=== PATIENT | male | born 1945 | race Caucasian/White ===

== ENCOUNTER 2016-12-10 06:59 | Inpatient (IN) | payer BC, MEDICARE ==
[2016-12-09 17:40] VITALS: BMI 25.9
[2016-12-10] VITALS (21 sets, daily range): BP systolic 99–166; BP diastolic 44–76; PULSE 58–76; RESP 18–29; Ht 170.2 cm; Wt 73.0 kg
[~2016-12-10] VITALS: Ht 170.2 cm; Wt 73.0 kg
--- NOTE | 2016-12-10 06:50 | HPN ---
Date/Time of Note Date/Time of Note DATE: 12/10/16 TIME: 06:49 Interval H&P Admission Note Pt. seen H&P reviewed: No system changes NICKIE YOUNG MD Dec 10, 2016 06:49
[~2016-12-10 06:59] MED LIST: ASCO-163 PO; CEFAZOLIN 2 GM/50 ML (PMX) 50 ML IVPB ONE; CYCL-117 PO; DEXAMETHASONE 1 MG TAB PO ONE; DOCO100C PO; ERGO500037 PO; GABAPENTIN 300 MG CAP PO ONE; GLUC1TAB59 PO; HYDR-3612 PO; IBUP800T25 PO; METO25TA7 PO; NIAC500T3 PO; OLME20TA20 PO; ORPH100T PO; PANT40TA3 PO; PERCOCET PO; PITA2TAB PO; SYN1 PO; TRANEXAMIC ACID 1,000 MG in SOD CHLORIDE 0.9% 100 ML IVPB ONE; WARF5TAB72 PO; traMADol 50 MG TAB PO ONE
[2016-12-10] MEDS ORDERED: PROPOFOL 1000 MG INJ ONE (07:00)
[2016-12-10] MEDS ORDERED: DEXAMETHASONE 4 MG/ML 1 ML INJ ONE (07:53)
[2016-12-10] MEDS ORDERED: PROPOFOL 20 ML ONE (07:53)
[2016-12-10] MEDS ORDERED: MIDAZOLAM 1 MG/ML 2 ML INJ ONE (07:53)
[2016-12-10] MEDS ORDERED: CEFAZOLIN 1 GM INJ ONE (07:53)
[2016-12-10] MEDS ORDERED: FENTAnyl 50 MCG/ML VIAL ONE (07:53)
[2016-12-10] MEDS ORDERED: GLYCOPYRROLATE 0.4 MG INJ ONE (07:53)
[2016-12-10] MEDS ORDERED: NEOSTIGMINE 3 MG/3 ML SYRINGE ONE (07:53)
[2016-12-10] MEDS ORDERED: ROCURONIUM 50 MG INJ ONE (07:53)
[2016-12-10] MEDS ORDERED: ONDANSETRON 4 MG INJ ONE (07:53)
[2016-12-10] MEDS ORDERED: ROPIVACAINE 0.5 % 30 ML VIAL ONE (07:56)
[2016-12-10] MEDS ORDERED: DEXL60CA2 PO (08:00)
[2016-12-10] MEDS ORDERED: FLUT9.9S NASAL (08:00)
[2016-12-10] MEDS ORDERED: LEVO88TA3 PO (08:01)
[2016-12-10] MEDS ORDERED: BECL8.7A5 INH (08:03)
[2016-12-10] MEDS ORDERED: WARF6TAB35 PO (08:04)
[2016-12-10] MEDS ORDERED: TIZA2TAB PO (08:04)
[2016-12-10] MEDS ORDERED: CA CHLORIDE 10% 10 ML SYRINGE ONE (08:23)
[2016-12-10] MEDS ORDERED: BUPIVACAINE 0.5%/EPI (SDV) 30 ML INJ ONE (08:23)
[2016-12-10] MEDS ORDERED: POLYMYXIN/BACITRACIN 1L IRRIG ONE (08:23)
[2016-12-10] MEDS ORDERED: THROMBIN 5000 UNIT VIAL ONE (08:23)
[2016-12-10] MEDS ORDERED: PAIN COCKTAIL - VANCOMYCIN IRR ONE ×7 (09:30)
[2016-12-10 09:33] LABS: INR 1.01; PARTIAL THROMBOPLASTIN TIME 28.1 Sec (25.0-35.0); PROTIME 13.3 Sec (12.2-14.2)
[2016-12-10] MEDS ORDERED: DIPHENHYDRAMINE 50 MG INJ IV PRN ×3 (10:00→16:00)
[2016-12-10] MEDS ORDERED: TRIMETHOBENZAMIDE 100 MG/ML VIAL IM PRN ×2 (10:00→13:00)
[2016-12-10] MEDS ORDERED: LABETALOL HCL 20MG INJ IV PRN ×2 (10:00→13:00)
[2016-12-10] MEDS ORDERED: ONDANSETRON 4 MG INJ IV PRN ×3 (10:00→16:00)
[2016-12-10] MEDS ORDERED: FENTAnyl 50 MCG/ML VIAL IV PRN ×6 (10:00→13:00)
[2016-12-10] MEDS ORDERED: EPHEDrine SULFATE 50 MG/5 ML SYG IV PRN ×2 (10:00→13:00)
[2016-12-10] MEDS ORDERED: MIDAZOLAM 1 MG/ML 2 ML INJ IV PRN ×2 (10:00→13:00)
[2016-12-10] MEDS ORDERED: HYDROmorphONE (0.2 MG/ML) 10ML SYG IV PRN ×6 (10:00→13:00)
[2016-12-10] MEDS ORDERED: hydrALAzine 20 MG INJ IV PRN ×2 (10:00→13:00)
[2016-12-10] MEDS ORDERED: MEPERIDINE 25 MG INJ IV PRN ×2 (10:00→13:00)
[2016-12-10] MEDS ORDERED: hydrALAzine 20 MG INJ ONE ×2 (10:21→10:22)
[2016-12-10] MEDS: VANCOMYCIN 1 GM INJ ONE ×2 (10:34→10:44)
[2016-12-10] MEDS: TOBRAMYCIN 1.2 GM POWDER ONE ×2 (10:36→10:44)
[2016-12-10] MEDS ORDERED: VANCOMYCIN 1 GM INJ ONE (10:39)
[2016-12-10] MEDS ORDERED: TOBRAMYCIN 1.2 GM POWDER ONE (10:39)
[2016-12-10] MEDS ORDERED: MINERAL OIL LIGHT 10 ML VIAL ONE (11:08)
--- NOTE | 2016-12-10 12:18 | OPR ---
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 POSTOPERATIVE DIAGNOSIS: Infected left reverse total shoulder. PROCEDURE PERFORMED: Left open removal of reverse total shoulder and revision to hemiarthroplasty. Slurry Plant Operator surgeon, Shakeel Acevedo MD, was asked to be present at my request as a result of the compl exity associated with this procedure, including positioning of the extremity, manipulation and prote ction of the neurovascular structures. In my opinion, the assistance offered by a surgical scrub [facility] is insufficient, and Dr. Acevedo should be compensated for his time. PROCEDURE IN DETAIL: Following administration of general endotracheal anesthesia, the patient was p laced in the beach chair position. The left upper extremity was prepped and draped in the usual jamar rile fashion. The previously made deltopectoral incision was then incised. Very severe scar tissue was encountered. The deltopectoral interval was identified and elevated. Significant scar tissue was elevated from the subdeltoid plane and the capsule of the joint was incised. A significant amou nt of serous fluid with some turbidity was noted. A culture was taken. Several areas of what appea red to be very inflamed synovium with superficially purulent material were then also sent for cultur e. The humeral shaft was then dislocated and the humeral component elevated and removed relatively atraumatically. The shaft was reamed. Attention then directed back to the glenoid. The glenoid components were removed with a small porti on of the glenoid being removed as a result of a fracture from the removal. Some incorporation had taken place there. The joint was then thoroughly irrigated. A humeral head was then fashioned using 3 grams of vancomy earl with cement, and this was then applied to the humeral shaft after multiple cement beads with hig h concentration of antibiotics were also placed prior to closure. A thorough irrigation was then un dertaken. The wound was closed in layers including a Prineo dressing being applied. The patient wa s then awakened, placed in a sling, extubated, transported to recovery room in a stable condition. Estimated blood loss for this procedure was 500 mL. Postoperative radiographs and a CBC will be obt ained prior to going to the floor. Dictated By: NICKIE ALLISON/NTS Conf#: [id number] DID#: [id number]
[2016-12-10] MEDS ORDERED: TRANEXAMIC ACID 1,000 MG in SOD CHLORIDE 0.9% 100 ML IV ONE (12:30)
[2016-12-10] MEDS ORDERED: MAGNESIUM HYDROXIDE 30ML CUP PO PRN (12:30)
[2016-12-10] MEDS ORDERED: ACETAMINOPHEN 500 MG TAB PO PRN (12:30)
[2016-12-10] MEDS ORDERED: TIZANIDINE 2 MG TAB PO PRN (12:30)
[2016-12-10] MEDS ORDERED: KETOROLAC 15 MG INJ IV PRN (12:30)
--- NOTE | 2016-12-10 12:32 | PDOCDIS ---
Discharge Instructions DIAGNOSIS Discharge Diagnosis: Infected total shoulder CONDITION Patient Condition: Good HOME CARE INSTRUCTIONS: Diet Instructions: Regular ACTIVITY: Activity Restrictions: Slowly Increase Activity Keep Limb Elevated Bathing Restrictions: Shower FOLLOW UP/APPOINTMENTS Appointments Two weeks OTHER ORDERS: Other Orders: Doxycycline BID for four weeks SCHOOL/WORK RELEASE May return to School/Work with: With Restrictions School/Work Release Comment: Five pound table top usage for six weeks NICKIE YOUNG MD Dec 10, 2016 12:32
--- NOTE | 2016-12-10 13:13 | RADRPT ---
PROCEDURE: CR left shoulder CLINICAL INDICATION: Shoulder pain /postop TECHNIQUE: AP view performed COMPARISON: 08/01/2015 FINDINGS: There has been removal of the left shoulder reverse arthroplasty and replacement with an antibiotic infused humeral head and to intramedullary rods (antibiotic beads surrounding the intramedullary malika s) There is otherwise normal mineralization, architecture and alignment.No fracture or osseous lesion i s identified. The soft tissues are unremarkable. IMPRESSION: Removal of left shoulder reverse arthroplasty and replacement with an antibiotic infused humeral hea d and intramedullary rods. RPTAT: HGDB .Rashaad Mi MD, Date Time Electronically viewed and signed by .Rashaad Mi MD, on 12/10/2016 13:12 .B/
[2016-12-10 15:13] LABS: ADD SCAN DIFF NO
[2016-12-10 15:15] LABS: ABNORMAL IP MESSAGE 1; HEMATOCRIT 38.6 % (42.0-52.0); HEMOGLOBIN 12.7 g/dl (14.0-18.0); MEAN CORPUSCULAR HEMOGLOBIN 30.8 pg (29.0-33.0); MEAN CORPUSCULAR HGB CONC 32.9 g/dl (32.0-37.0); MEAN CORPUSCULAR VOLUME 93.7 fl (82.0-101.0); MEAN PLATELET VOLUME 10.2 fl (7.4-10.4); PLATELET COUNT 194 10^3/UL (140-415); RED BLOOD COUNT 4.12 10^6/ul (4.70-6.10); RED CELL DISTRIBUTION WIDTH 13.3 % (11.5-14.5); WHITE BLOOD COUNT 12.6 10^3/ul (4.8-10.8)
[2016-12-10] MEDS ORDERED: morphine 2 MG INJ IV PRN (16:00)
[2016-12-10] MEDS ORDERED: morphine 4 MG/ML VIAL IV PRN (16:00)
[2016-12-10] MEDS ORDERED: OXYCODONE/ACETAMINOPHEN (5/325) TAB PO PRN (16:00)
[2016-12-10] MEDS ORDERED: ZOLPIDEM 5 MG TAB PO PRN (16:00)
[2016-12-10 16:37] LABS: LYMPHOCYTES # 0.3 10^3/ul (0.8-2.9); MONOCYTE # 0.1 10^3/ul (0.3-0.9); NEUTROPHIL # 11.7 10^3/ul (1.6-7.5)
[2016-12-10] MEDS ORDERED: WARFARIN 3 MG TAB PO SCH (17:00)
[2016-12-10] MEDS: DEXAMETHASONE 2 MG TAB PO SCH (17:51)
[2016-12-10] MEDS: MOMETASONE 0.24 GM INHALER INH SCH (20:39)
[2016-12-10] MEDS: SENNA/DOCUSATE NA (8.6MG/50MG) TAB PO SCH (20:40)
[2016-12-10] MEDS ORDERED: GABAPENTIN 300 MG CAP PO SCH (21:00)
[2016-12-10] MEDS: VANCOMYCIN 500MG/NS (PMX) 100 ML IVPB SCH (22:02)
[2016-12-10] MEDS: OXYCODONE/ACETAMINOPHEN (5/325) TAB PO PRN (22:06)
[2016-12-11] MEDS: DEXAMETHASONE 2 MG TAB PO SCH ×2 (00:40→06:27)
[2016-12-11] MEDS ORDERED: PANTOPRAZOLE (EC) 40 MG TAB PO SCH (06:00)
--- NOTE | 2016-12-11 06:40 | PN ---
Date/Time of Note Date/Time of Note DATE: 12/11/16 TIME: 06:39 24 hour Interval Summary Patient is awake and alert with no pain. Physical examination: His wound is clean and dry. He is neurologically intact. There are no signs of DVT. Impression: Status post conversion of reverse total shoulder with infection now to hemiarthroplasty. Plan: He will be discharged this morning. He will continue with a course of doxycycline twice daily for the next month. He will follow-up in the office in 2 weeks. Physical Exam Vital Signs Date Time Temp Pulse Resp B/P Pulse Ox O2 Delivery O2 Flow Rate FiO2 12/10/16 20:57 97.4 72 20 109/58 96 12/10/16 16:25 Room Air 12/10/16 12:26 2.0 Intake and Output 12/10/16 12/10/16 12/11/16 15:00 23:00 07:00 Intake Total 2510 ml 500 ml 100 ml Output Total 500 ml 600 ml Balance 2010 ml -100 ml 100 ml VTE Prophylaxis VTE Prophylaxis Intervention: anti-embolic stocking Lines/Catheters IV Catheter Type: Saline Lock Central line still needed: No Christianson in Place: No Results Result Diagram: 12/10/16 1510 Results 24hrs Laboratory Tests Test 12/10/16 09:15 12/10/16 15:10 Prothrombin Time 13.3 Prothrombin Time Ratio 1.0 INR International Normalized Ratio 1.01 Activated Partial Thromboplast Time 28.1 White Blood Count 12.6 H Red Blood Count 4.12 L Hemoglobin 12.7 L Hematocrit 38.6 L Mean Corpuscular Volume 93.7 Mean Corpuscular Hemoglobin 30.8 Mean Corpuscular Hemoglobin Concent 32.9 Red Cell Distribution Width 13.3 Platelet Count 194 Mean Platelet Volume 10.2 Neutrophils % 93.0 H Lymphocytes % 2.0 L Monocytes % 1.0 Eosinophils % 0.0 Basophils % 0.0 Nucleated Red Blood Cells % 0.0 Neutrophils # 11.7 H Lymphocytes # 0.3 L Monocytes # 0.1 L Eosinophils # 0.0 Basophils # 0.0 Nucleated Red Blood Cells # 0.0 Differential Comment MANUAL DIFF Medications Medications Home Meds Reported Medications Warfarin Sodium* (Warfarin Sodium*) 6 Mg Tablet, 6 MG PO DAILY, TAB 12/10/16 Tizanidine Hcl* (Zanaflex*) 2 Mg Tablet, 2 MG PO Q6H Y for SPASTICITY, TAB 12/10/16 Beclomethasone Dip* (Qvar 80*) 7.3 Gm Inha, 2 PUFF INH BID, #1 INHALER 12/10/16 Levothyroxine Sodium* (Levothyroxine Sodium*) 88 Mcg Tablet, 88 MCG PO BEFORE BREAKFAST, #30 TAB 12/10/16 Fluticasone Propionate (Flonase Allergy Relief) 9.9 Ml [place].susp, 2 SPRAY NASAL DAILY, #1 BOTTLE TO EACH NOSTRIL 12/10/16 Dexlansoprazole (Dexilant) 60 Mg Cap.mp, 60 MG PO DAILY, #30 CAP 12/10/16 Metoprolol Succinate* (Toprol XL*) 25 Mg Tab.sr.24h, 25 MG PO DAILY, TAB 08/01/15 Olmesartan Medoxomil (Benicar) 20 Mg Tablet, 20 MG PO DAILY 01/04/14 Discontinued Reported Medications Warfarin Sodium* (Coumadin*) 5 Mg Tablet, 5 MG PO DAILY, TAB 08/01/15 Niacin* (Slo-Niacin*) 500 Mg Tablet.sa, 500 MG PO DAILY, TAB.SA 08/01/15 Orphenadrine Citrate (Norflex) 100 Mg Tablet.sa, 100 MG PO DAILY Y for BREAKTHROUGH PAIN 01/04/14 Oxycodone Hcl/Acetaminophen (Percocet) 1 Tab Tab, 1 TAB PO Y for MODERATE PAIN LEVEL 4-6, TAB 01/04/14 Cyclobenzaprine Hcl (Flexeril) 10 Mg Tablet, 10 MG PO DAILY Y for INFLAMATION 01/04/14 Ibuprofen* (Ibuprofen*) 800 Mg Tablet, 800 MG PO BID Y for MILD PAIN LEVEL 1-3 01/04/14 Hydrocodone Bit-Acetaminophen* ([place]*) 1 Tab Tab, 1 TAB PO Q4NARC Y for MODERATE PAIN LEVEL 4-6, TAB 01/04/14 Ergocalciferol (Vitamin D2) (VITAMIN D2) 50,000 Unit Capsule, 30186 UNIT PO WEEKLY 01/04/14 Ascorbic Acid (Vitamin C With Eryn Hips) 1,000 Mg Tablet, 1000 MG PO DAILY 01/04/14 Docosahexanoic Acid (DHA) 100 Mg Capsule, 100 MG PO DAILY 01/04/14 Glucosa Angulo 2KCL/Chondroitin Angulo (GLUCOSAMINE CHONDROITIN CAPLET) 1 Each Tablet, 1 EACH PO BID 01/04/14 Pitavastatin Calcium (Livalo) 2 Mg Tablet, 2 MG PO HS 01/04/14 Pantoprazole* (Protonix*) 40 Mg Tablet.dr, 40 MG PO DAILY 01/04/14 Levothyroxine Sodium* (Synthroid*) 100 Mcg Tablet, 100 MCG PO DAILY 01/04/14 NICKIE YOUNG MD Dec 11, 2016 06:40
--- NOTE | 2016-12-11 06:42 | DS ---
Date/Time of Note Date/Time of Note DATE: 12/11/16 TIME: 06:40 Discharge Summary Admission/Discharge Info Admit Date/Time Dec 10, 2016 at 06:59 Discharge Date/Time December 11, 2016 Final Diagnosis Infection of the left reverse total shoulder replacement Patient Condition: Good Procedures Removal of reverse total shoulder replacement with revision to hemiarthroplasty cemented implant Hx of Present Illness Patient had chronic swelling and pain in the left shoulder. Evaluation revealed a possible infection. Hospital Course Patient had removal of a reverse total shoulder replacement. Following overnight observation the patient did well and is to be discharged home on oral antibiotics. He also has a cement spacer that has several grams of antibiotics. Home Meds Reported Medications Warfarin Sodium* (Warfarin Sodium*) 6 Mg Tablet, 6 MG PO DAILY, TAB 12/10/16 Tizanidine Hcl* (Zanaflex*) 2 Mg Tablet, 2 MG PO Q6H Y for SPASTICITY, TAB 12/10/16 Beclomethasone Dip* (Qvar 80*) 7.3 Gm Inha, 2 PUFF INH BID, #1 INHALER 12/10/16 Levothyroxine Sodium* (Levothyroxine Sodium*) 88 Mcg Tablet, 88 MCG PO BEFORE BREAKFAST, #30 TAB 12/10/16 Fluticasone Propionate (Flonase Allergy Relief) 9.9 Ml [place].susp, 2 SPRAY NASAL DAILY, #1 BOTTLE TO EACH NOSTRIL 12/10/16 Dexlansoprazole (Dexilant) 60 Mg Cap.mp, 60 MG PO DAILY, #30 CAP 12/10/16 Metoprolol Succinate* (Toprol XL*) 25 Mg Tab.sr.24h, 25 MG PO DAILY, TAB 08/01/15 Olmesartan Medoxomil (Benicar) 20 Mg Tablet, 20 MG PO DAILY 01/04/14 Discontinued Reported Medications Warfarin Sodium* (Coumadin*) 5 Mg Tablet, 5 MG PO DAILY, TAB 08/01/15 Niacin* (Slo-Niacin*) 500 Mg Tablet.sa, 500 MG PO DAILY, TAB.SA 08/01/15 Orphenadrine Citrate (Norflex) 100 Mg Tablet.sa, 100 MG PO DAILY Y for BREAKTHROUGH PAIN 01/04/14 Oxycodone Hcl/Acetaminophen (Percocet) 1 Tab Tab, 1 TAB PO Y for MODERATE PAIN LEVEL 4-6, TAB 01/04/14 Cyclobenzaprine Hcl (Flexeril) 10 Mg Tablet, 10 MG PO DAILY Y for INFLAMATION 01/04/14 Ibuprofen* (Ibuprofen*) 800 Mg Tablet, 800 MG PO BID Y for MILD PAIN LEVEL 1-3 01/04/14 Hydrocodone Bit-Acetaminophen* ([place]*) 1 Tab Tab, 1 TAB PO Q4NARC Y for MODERATE PAIN LEVEL 4-6, TAB 01/04/14 Ergocalciferol (Vitamin D2) (VITAMIN D2) 50,000 Unit Capsule, 58901 UNIT PO WEEKLY 01/04/14 Ascorbic Acid (Vitamin C With Eryn Hips) 1,000 Mg Tablet, 1000 MG PO DAILY 01/04/14 Docosahexanoic Acid (DHA) 100 Mg Capsule, 100 MG PO DAILY 01/04/14 Glucosa Angulo 2KCL/Chondroitin Angulo (GLUCOSAMINE CHONDROITIN CAPLET) 1 Each Tablet, 1 EACH PO BID 01/04/14 Pitavastatin Calcium (Livalo) 2 Mg Tablet, 2 MG PO HS 01/04/14 Pantoprazole* (Protonix*) 40 Mg Tablet.dr, 40 MG PO DAILY 01/04/14 Levothyroxine Sodium* (Synthroid*) 100 Mcg Tablet, 100 MCG PO DAILY 01/04/14 Pending Labs Laboratory Tests Test 12/10/16 09:15 12/10/16 15:10 Prothrombin Time 13.3Sec (12.2-14.2) Prothrombin Time Ratio 1.0 INR International Normalized Ratio 1.01 Activated Partial Thromboplast Time 28.1Sec (25.0-35.0) White Blood Count 12.610^3/ul (4.8-10.8) Red Blood Count 4.1210^6/ul (4.70-6.10) Hemoglobin 12.7g/dl (14.0-18.0) Hematocrit 38.6% (42.0-52.0) Mean Corpuscular Volume 93.7fl (82.0-101.0) Mean Corpuscular Hemoglobin 30.8pg (29.0-33.0) Mean Corpuscular Hemoglobin Concent 32.9g/dl (32.0-37.0) Red Cell Distribution Width 13.3% (11.5-14.5) Platelet Count 77246^3/UL (140-415) Mean Platelet Volume 10.2fl (7.4-10.4) Neutrophils % 93.0% (39.0-77.0) Lymphocytes % 2.0% (15.0-51.0) Monocytes % 1.0% (0.0-11.0) Eosinophils % 0.0% (0.0-7.0) Basophils % 0.0% (0.0-2.0) Nucleated Red Blood Cells % 0.0/100WBC (0.0-0.0) Neutrophils # 11.710^3/ul (1.6-7.5) Lymphocytes # 0.310^3/ul (0.8-2.9) Monocytes # 0.110^3/ul (0.3-0.9) Eosinophils # 0.010^3/ul (0.0-0.5) Basophils # 0.010^3/ul (0.0-0.1) Nucleated Red Blood Cells # 0.010^3/ul (0.0-0.0) Differential Comment MANUAL DIFF NICKIE YOUNG MD Dec 11, 2016 06:42
[2016-12-11] MEDS ORDERED: LEVOTHYROXINE 88 MCG TAB PO SCH (07:00)
[2016-12-11 08:28] VITALS: BP 132/71; RESP 18
[2016-12-11] MEDS: MOMETASONE 0.24 GM INHALER INH SCH (08:51)
[2016-12-11] MEDS: SENNA/DOCUSATE NA (8.6MG/50MG) TAB PO SCH (08:53)
[2016-12-11] MEDS: OXYCODONE/ACETAMINOPHEN (5/325) TAB PO PRN (08:57)
[2016-12-11] MEDS: VANCOMYCIN 500MG/NS (PMX) 100 ML IVPB SCH (08:57)
[2016-12-11] MEDS ORDERED: METOPROLOL (XL) 25 MG TAB PO SCH (09:00)
[2016-12-11] MEDS ORDERED: LOSARTAN 50 MG TAB PO SCH (09:00)
[2016-12-11] MEDS ORDERED: FLUTICASONE 0.05% 16 GM NAS SPRAY NASAL SCH (09:00)
== END 2016-12-11 11:00 | disposition home or self-care (01) | DRG 483 ==
LOC: REC 06:59 → MS1 13:35
PROVIDERS: ADMIT Orthopaedic Surgery; ATTEND Orthopaedic Surgery
PROC: 0RPK0JZ Removal of Synthetic Substitute from Left Shoulder Joint, Open Approach (ICD-10-PCS; 2016-12-10)
PROC: 0RRK0JZ Replacement of Left Shoulder Joint with Synthetic Substitute, Open Approach (ICD-10-PCS; principal; 2016-12-10 09:30)
DX: T84.59XA Infection and inflammatory reaction due to other internal joint prosthesis, initial encounter (principal); I10 Essential (primary) hypertension; Y83.8 Other surgical procedures as the cause of abnormal reaction of the patient, or of later complication, without mention of misadventure at the time of the procedure; Y92.019 Unspecified place in single-family (private) house as the place of occurrence of the external cause; E78.5 Hyperlipidemia, unspecified; M79.1 Myalgia; E03.9 Hypothyroidism, unspecified; K21.9 Gastro-esophageal reflux disease without esophagitis; K44.9 Diaphragmatic hernia without obstruction or gangrene; Z96.611 Presence of right artificial shoulder joint; Z96.612 Presence of left artificial shoulder joint; Z87.891 Personal history of nicotine dependence; Z95.2 Presence of prosthetic heart valve; Z79.01 Long term (current) use of anticoagulants
CPT/HCPCS: 73030; 85025; 85610; 85730; 86999; 87070; 87075; Z7610; J0171; J0360; J0690; J0735; J1100; J1885; J2250; J2274; J2405; J2710; J2795; J3010; J3370

== ENCOUNTER 2017-03-15 07:00 | Inpatient (IN) | payer BC, MEDICARE ==
[~2017-03-15] VITALS: Ht 170.2 cm; Wt 73.2 kg
[~2017-03-15 07:00] MED LIST changes: -ASCO-163 PO; +BECL8.7A5 INH; -CEFAZOLIN 2 GM/50 ML (PMX) 50 ML IVPB ONE; -CYCL-117 PO; -DEXAMETHASONE 1 MG TAB PO ONE; +DEXL60CA2 PO; -DOCO100C PO; -ERGO500037 PO; +FLUT9.9S NASAL; -GABAPENTIN 300 MG CAP PO ONE; -GLUC1TAB59 PO; -HYDR-3612 PO; -IBUP800T25 PO; +LEVO88TA3 PO; -NIAC500T3 PO; -ORPH100T PO; -PANT40TA3 PO; -PERCOCET PO; -PITA2TAB PO; -SYN1 PO; +TIZA2TAB PO; -TRANEXAMIC ACID 1,000 MG in SOD CHLORIDE 0.9% 100 ML IVPB ONE; -WARF5TAB72 PO; +WARF6TAB35 PO; -traMADol 50 MG TAB PO ONE
[2017-03-25] VITALS (21 sets, daily range): BP systolic 97–179; BP diastolic 48–95; PULSE 66–78; RESP 15–25; Ht 170.2 cm; Wt 73.2 kg
[2017-03-25] MEDS ORDERED: SOD CHLORIDE 0.9% 100 ML, TRANEXAMIC ACID 3,000 MG IRR ONE ×2 (06:30)
[2017-03-25] MEDS ORDERED: traMADol 50 MG TAB PO ONE (06:30)
[2017-03-25] MEDS ORDERED: GABAPENTIN 300 MG CAP PO ONE (06:30)
[2017-03-25] MEDS ORDERED: TRANEXAMIC ACID 1,000 MG in SOD CHLORIDE 0.9% 100 ML IVPB ONE (06:30)
[2017-03-25] MEDS ORDERED: VANCOMYCIN 1 GM (PMX) 250 ML IVPB ONE (06:30)
[2017-03-25] MEDS ORDERED: DEXAMETHASONE 1 MG TAB PO ONE (06:30)
[2017-03-25] MEDS ORDERED: CEFAZOLIN 2 GM/50 ML (PMX) 50 ML IVPB ONE (06:30)
[2017-03-25] MEDS ORDERED: THROMBIN 5000 UNIT VIAL ONE (06:38)
[2017-03-25] MEDS ORDERED: BUPIVACAINE 0.5%/EPI (SDV) 10 ML INJ ONE (06:38)
[2017-03-25] MEDS ORDERED: CA CHLORIDE 10% 10 ML SYRINGE ONE (06:39)
[2017-03-25] MEDS ORDERED: POLYMYXIN/BACITRACIN 1L IRRIG ONE (06:39)
--- NOTE | 2017-03-25 06:47 | HPN ---
Date/Time of Note Date/Time of Note DATE: 03/25/17 TIME: 06:46 Interval H&P Admission Note Pt. seen H&P reviewed: No system changes NICKIE YOUNG MD Mar 25, 2017 06:46
[2017-03-25] MEDS ORDERED: ETOMIDATE 20 MG INJ ONE (06:48)
[2017-03-25] MEDS ORDERED: PROPOFOL 20 ML ONE (06:48)
[2017-03-25] MEDS ORDERED: FENTAnyl 50 MCG/ML VIAL ONE (06:48)
[2017-03-25] MEDS ORDERED: CEFAZOLIN 1 GM INJ ONE (06:48)
[2017-03-25] MEDS ORDERED: MIDAZOLAM 1 MG/ML 2 ML INJ ONE (06:48)
[2017-03-25] MEDS ORDERED: ROPIVACAINE 0.5 % 30 ML VIAL ONE (06:49)
[2017-03-25] MEDS ORDERED: METOCLOPRAMIDE 10 MG INJ ONE (06:49)
[2017-03-25] MEDS ORDERED: ONDANSETRON 4 MG INJ ONE (06:49)
[2017-03-25] MEDS ORDERED: EPHEDrine SULFATE 50 MG/5 ML SYG ONE ×2 (07:14→08:16)
[2017-03-25] MEDS ORDERED: MEPERIDINE 25 MG INJ IV PRN (08:00)
[2017-03-25] MEDS ORDERED: METOCLOPRAMIDE 10 MG INJ IV PRN (08:00)
[2017-03-25] MEDS ORDERED: MIDAZOLAM 1 MG/ML 2 ML INJ IV PRN (08:00)
[2017-03-25] MEDS ORDERED: ONDANSETRON 4 MG INJ IV PRN ×2 (08:00→08:30)
[2017-03-25] MEDS ORDERED: DIPHENHYDRAMINE 50 MG INJ IV PRN ×2 (08:00→08:30)
[2017-03-25] MEDS ORDERED: EPHEDrine SULFATE 50 MG/5 ML SYG IV PRN (08:00)
[2017-03-25] MEDS ORDERED: HYDROmorphONE (0.2 MG/ML) 10ML SYG IV PRN ×3 (08:00)
[2017-03-25] MEDS ORDERED: BACITRACIN 0.9 GM OINT ONE (08:27)
[2017-03-25] MEDS ORDERED: ACETAMINOPHEN 500 MG TAB PO PRN (08:30)
[2017-03-25] MEDS ORDERED: KETOROLAC 15 MG INJ IV PRN (08:30)
[2017-03-25] MEDS ORDERED: morphine 2 MG INJ IV PRN (08:30)
[2017-03-25] MEDS ORDERED: MAGNESIUM HYDROXIDE 30ML CUP PO PRN (08:30)
[2017-03-25] MEDS ORDERED: ZOLPIDEM 5 MG TAB PO PRN (08:30)
[2017-03-25] MEDS ORDERED: TIZANIDINE 2 MG TAB PO PRN (08:30)
[2017-03-25] MEDS ORDERED: OXYCODONE/ACETAMINOPHEN (5/325) TAB PO PRN (08:30)
[2017-03-25] MEDS ORDERED: morphine 4 MG/ML VIAL IV PRN (08:30)
[2017-03-25] MEDS ORDERED: TRANEXAMIC ACID 1,000 MG in SOD CHLORIDE 0.9% 100 ML IV ONE (08:30)
--- NOTE | 2017-03-25 08:33 | OPR ---
Date/Time of Note Date/Time of Note DATE: 03/25/17 TIME: 08:28 Operative Report Procedure Date: Mar 25, 2017 Preoperative Diagnosis Infected left reverse total shoulder replacement. Postoperative Diagnosis Status post infected left reverse total shoulder replacement with hemiarthroplasty in place Operation Performed Revision of hemiarthroplasty to left reverse total shoulder replacement Surgeon: NICKIE YOUNG MD Anesthesia: general, other Estimated Blood Loss: 50 - 100 ml's Specimens None Tubes/Drains None Complications: None Pt Condition Post Procedure: stable Disposition: PACU Indications The patient has a history of having undergone a reverse total shoulder replacement remotely. Approximately 2 months ago, he underwent a removal of the reverse total shoulder with an infection. His infection was treated and now he is returning for revision back to his reverse total shoulder replacement. He has gone through a full antibiotic course and he has no evidence of remaining infection. Operative\Procedure Findings Following the administration of general endotracheal anesthesia the patient was placed in the beachchair position. Sterile prep and drape was then undertaken in the usual fashion. The previously made deltopectoral incision was then incised once again and the subdeltoid plane elevated. The humeral temporary device was then removed relatively atraumatically. There was no significant synovitis within the joint and the joint was actually very clean. There is no erosion of the bone. In addition, the area of the humeral insertion was also clean with no evidence of infection. The soft tissues were biopsied and sent for culture. The humeral shaft was then reamed and prepared for a 10 mm long stem Depuy component. The glenoid was then exposed and peripheral synovitis was removed again the central canal was solid and filled in. The glenoid baseplate was then prepared this was a 25 mm peg component. The actual component was then placed in position with 4 peripheral screws with solid fixation. The glenoid sphere was then applied. This was a standard 38 mm glenoid sphere. Attention was then directed back to the humerus where the 10 mm long stem component was then placed with a 6 mm liner. The arm was taken through a full range of motion with no evident instability. The joint was thoroughly irrigated closed in layers followed by a Prenio dressing. A watertight closure was obtained. An UltraSling was then placed the patient was extubated and transported to recovery room in stable condition. NICKIE YOUNG MD Mar 25, 2017 08:33
[2017-03-25] MEDS ORDERED: hydrALAzine 20 MG INJ ONE (09:07)
[2017-03-25] MEDS ORDERED: hydrALAzine 20 MG INJ IV PRN (09:30)
[2017-03-25] MEDS ORDERED: LABETALOL HCL 20MG INJ IV PRN (09:30)
--- NOTE | 2017-03-25 09:53 | RADRPT ---
PROCEDURE: XR Left Shoulder CLINICAL INDICATION: Postop TECHNIQUE: To portable AP views were submitted. COMPARISON: 12/10/2016 FINDINGS: Osseous structures: Since the previous study, the methylmethacrylate and rods have been removed and the patient has undergone reversed total left shoulder arthroplasty with the components well-seated. There is again fragmentation of the distal left clavicle, unchanged. Joint spaces: The prosthetic glenohumeral joint appears well-aligned. The left AC joint remains mild ly widened. Soft tissues: Postop subcutaneous air is seen lateral to the glenoid component. IMPRESSION: 1. Well seated and reversed total left shoulder arthroplasty. 2. Slight fragmentation again seen at the distal left clavicle with slight widening of the left AC joint. Physician Allen Date Time Electronically viewed and signed by Physician Allen on 03/25/2017 09:53 /
[2017-03-25] MEDS: DEXAMETHASONE 2 MG TAB PO SCH ×3 (12:27→23:07)
[2017-03-25] MEDS: MOMETASONE 0.24 GM INHALER INH SCH ×2 (12:27→21:06)
[2017-03-25] MEDS: VANCOMYCIN 500MG/NS (PMX) 100 ML IVPB SCH ×2 (12:37→23:07)
--- NOTE | 2017-03-25 13:47 | PDOCDIS ---
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
[2017-03-25] MEDS ORDERED: WARFARIN 3 MG TAB PO SCH (17:00)
[2017-03-25] MEDS: LOSARTAN 50 MG TAB PO SCH (17:35)
[2017-03-25] MEDS: METOPROLOL (XL) 25 MG TAB PO SCH (17:35)
[2017-03-25] MEDS ORDERED: GABAPENTIN 300 MG CAP PO SCH (21:00)
[2017-03-25] MEDS: OXYCODONE/ACETAMINOPHEN (5/325) TAB PO PRN (21:05)
[2017-03-25] MEDS: SENNA/DOCUSATE NA (8.6MG/50MG) TAB PO SCH (21:05)
[2017-03-26 00:11] VITALS: BP 138/74; RESP 20
[2017-03-26 05:21] LABS: INR 1.19; PROTIME 15.2 Sec (12.2-14.2); PT RATIO 1.2
[2017-03-26] MEDS ORDERED: PANTOPRAZOLE (EC) 40 MG TAB PO SCH (06:00)
[2017-03-26] MEDS: DEXAMETHASONE 2 MG TAB PO SCH (06:34)
--- NOTE | 2017-03-26 06:42 | PN ---
Date/Time of Note Date/Time of Note DATE: 03/26/17 TIME: 06:41 24 hour Interval Summary Patient is awake and alert with minimal to no pain. He is comfortable. His sling is in place. Physical Exam Physical examination reveals that his wound is clean and dry. He is neurologically intact. There are no signs of DVT. Vital Signs Date Time Temp Pulse Resp B/P Pulse Ox O2 Delivery O2 Flow Rate FiO2 03/26/17 00:11 98.4 67 20 138/74 99 03/25/17 13:25 Room Air Intake and Output 03/25/17 03/25/17 03/26/17 15:00 23:00 07:00 Intake Total 1000 ml 960 ml 600 ml Output Total 200 ml 870 ml 600 ml Balance 800 ml 90 ml 0 ml VTE Prophylaxis VTE Prophylaxis Intervention: anti-embolic stocking, other Lines/Catheters IV Catheter Type: Saline Lock Christianson in Place: No Results Results 24hrs Laboratory Tests Test 03/26/17 04:35 Prothrombin Time 15.2 H Prothrombin Time Ratio 1.2 INR International Normalized Ratio 1.19 Assessment/Plan Assessment/Plan Assessment: He is to be discharged to be followed up in the office in 2 weeks. Medications Medications Home Meds Reported Medications Warfarin Sodium* (Warfarin Sodium*) 6 Mg Tablet, 6 MG PO DAILY, TAB 12/10/16 Tizanidine Hcl* (Zanaflex*) 2 Mg Tablet, 2 MG PO Q6H Y for SPASTICITY, TAB 12/10/16 Beclomethasone Dip* (Qvar 80*) 7.3 Gm Inha, 2 PUFF INH BID, #1 INHALER 12/10/16 Levothyroxine Sodium* (Levothyroxine Sodium*) 88 Mcg Tablet, 88 MCG PO BEFORE BREAKFAST, #30 TAB 12/10/16 Fluticasone Propionate (Flonase Allergy Relief) 9.9 Ml [place].susp, 2 SPRAY NASAL DAILY, #1 BOTTLE TO EACH NOSTRIL 12/10/16 Dexlansoprazole (Dexilant) 60 Mg Case., 60 MG PO DAILY, #30 CAP 12/10/16 Metoprolol Succinate* (Toprol XL*) 25 Mg Tab.sr.24h, 25 MG PO DAILY, TAB 08/01/15 Olmesartan Medoxomil (Benicar) 20 Mg Tablet, 20 MG PO DAILY 01/04/14 NICKIE YOUNG MD Mar 26, 2017 06:42
--- NOTE | 2017-03-26 06:43 | DS ---
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 Hx of Present Illness Status post infection of a reverse total shoulder that was treated with a temporary insert containing cement. He is now taken to surgery for removal of this component. Hospital Course Patient was admitted and underwent an uncomplicated procedure. On postoperative day #1 he was afebrile his wound was clean and dry he was neurologically intact. Home Meds Reported Medications Warfarin Sodium* (Warfarin Sodium*) 6 Mg Tablet, 6 MG PO DAILY, TAB 12/10/16 Tizanidine Hcl* (Zanaflex*) 2 Mg Tablet, 2 MG PO Q6H Y for SPASTICITY, TAB 12/10/16 Beclomethasone Dip* (Qvar 80*) 7.3 Gm Inha, 2 PUFF INH BID, #1 INHALER 12/10/16 Levothyroxine Sodium* (Levothyroxine Sodium*) 88 Mcg Tablet, 88 MCG PO BEFORE BREAKFAST, #30 TAB 12/10/16 Fluticasone Propionate (Flonase Allergy Relief) 9.9 Ml [place].susp, 2 SPRAY NASAL DAILY, #1 BOTTLE TO EACH NOSTRIL 12/10/16 Dexlansoprazole (Dexilant) 60 Mg Cap.mp, 60 MG PO DAILY, #30 CAP 12/10/16 Metoprolol Succinate* (Toprol XL*) 25 Mg Tab.sr.24h, 25 MG PO DAILY, TAB 08/01/15 Olmesartan Medoxomil (Benicar) 20 Mg Tablet, 20 MG PO DAILY 01/04/14 Primary Care Provider Not On Staff Doctor Pending Labs Laboratory Tests Test 03/26/17 04:35 Prothrombin Time 15.2Sec (12.2-14.2) Prothrombin Time Ratio 1.2 INR International Normalized Ratio 1.19 NICKIE YOUNG MD Mar 26, 2017 06:43
[2017-03-26] MEDS ORDERED: LEVOTHYROXINE 88 MCG TAB PO SCH (07:00)
[2017-03-26 07:45] VITALS: BP 150/68; RESP 18
[2017-03-26] MEDS: LOSARTAN 50 MG TAB PO SCH (08:51)
[2017-03-26] MEDS: SENNA/DOCUSATE NA (8.6MG/50MG) TAB PO SCH (08:51)
[2017-03-26] MEDS: METOPROLOL (XL) 25 MG TAB PO SCH (08:51)
[2017-03-26] MEDS: MOMETASONE 0.24 GM INHALER INH SCH (08:52)
[2017-03-26] MEDS: OXYCODONE/ACETAMINOPHEN (5/325) TAB PO PRN (08:56)
[2017-03-26] MEDS ORDERED: FLUTICASONE 0.05% 16 GM NAS SPRAY NASAL SCH (09:00)
== END 2017-03-26 12:02 | disposition home or self-care (01) | DRG 483 ==
LOC: UNDOADMIN 14:34 → REC 14:34 → MS1 03-25 09:56
PROVIDERS: ADMIT Orthopaedic Surgery; ATTEND Orthopaedic Surgery
PROC: 0RRK00Z Replacement of Left Shoulder Joint with Reverse Ball and Socket Synthetic Substitute, Open Approach (ICD-10-PCS; principal; 2017-03-25 07:00)
DX: Z47.31 Aftercare following explantation of shoulder joint prosthesis (principal); I10 Essential (primary) hypertension; E03.9 Hypothyroidism, unspecified; E78.5 Hyperlipidemia, unspecified; K21.9 Gastro-esophageal reflux disease without esophagitis; Z96.612 Presence of left artificial shoulder joint; Z87.891 Personal history of nicotine dependence; Z79.01 Long term (current) use of anticoagulants
CPT/HCPCS: 73030; 85610; 86999; 87070; 87075; C1776; J0360; J0690; J1885; J2250; J2270; J2405; J2765; J2795; J3010; J3370

== ENCOUNTER 2017-08-26 09:14 | Inpatient (IN) | payer BC, MEDICARE ==
[~2017-08-26] VITALS: Ht 170.2 cm; Wt 75.1 kg
[2017-08-26] VITALS (24 sets, daily range): BP systolic 71–147; BP diastolic 40–88; PULSE 66–82; RESP 16–26; Ht 170.2 cm; Wt 75.1 kg
[~2017-08-26 09:14] MED LIST changes: +ATROPINE 1 MG/10 ML SYRINGE IV PRN; +BUPIVACAINE 0.5% (SDV) 30 ML, morphine SULFATE (PF) 8 MG, EPINEPHrine 0.3 MG, KETOROLAC... IRR SCH; +DEXAMETHASONE 1 MG TAB PO ONE; +DEXAMETHASONE 4 MG/ML 1 ML INJ ONE; +DIPHENHYDRAMINE 50 MG INJ IV PRN; +EPHEDrine SULFATE 50 MG/5 ML SYG IV PRN; +FENTAnyl 50 MCG/ML VIAL IV PRN; +GABAPENTIN 300 MG CAP PO ONE; +HYDROmorphONE (0.2 MG/ML) 10ML SYG IV PRN; +LABETALOL HCL 20MG INJ IV PRN; +MEPERIDINE 25 MG INJ IV PRN; +METO-335 PO; -METO25TA7 PO; +MIDAZOLAM 1 MG/ML 2 ML INJ IV PRN; +ONDANSETRON 4 MG INJ IV PRN; +OXYCODONE/ACETAMINOPHEN (5/325) TAB PO PRN; +VANCOMYCIN 1 GM (PMX) 250 ML IVPB ONE; +hydrALAzine 20 MG INJ IV PRN; +morphine (1 MG/ML) 10ML SYRINGE IV PRN; +traMADol 50 MG TAB PO ONE
[2017-08-26] MEDS ORDERED: EPHEDrine SULFATE 50 MG/5 ML SYG ONE (09:45)
[2017-08-26] MEDS ORDERED: DONE5TAB46 PO (09:46)
[2017-08-26] MEDS ORDERED: METOCLOPRAMIDE 10 MG INJ ONE (09:46)
[2017-08-26] MEDS ORDERED: ROCURONIUM 50 MG INJ ONE (09:46)
[2017-08-26] MEDS ORDERED: PROPOFOL 20 ML ONE (09:46)
[2017-08-26] MEDS ORDERED: NEOSTIGMINE 3 MG/3 ML SYRINGE ONE (09:46)
[2017-08-26] MEDS ORDERED: LIDOCAINE 2% (SDV) 5 ML INJ ONE (09:46)
[2017-08-26] MEDS ORDERED: GLYCOPYRROLATE 0.4 MG INJ ONE (09:46)
[2017-08-26] MEDS ORDERED: SUCCINYLCHOLINE CHLORIDE 100 MG/5 ML SYG IV ONE (09:47)
[2017-08-26] MEDS ORDERED: MIDAZOLAM 1 MG/ML 2 ML INJ ONE (09:47)
[2017-08-26] MEDS ORDERED: FENTAnyl 50 MCG/ML VIAL ONE (09:47)
[2017-08-26] MEDS ORDERED: ROPIVACAINE 0.5 % 30 ML VIAL ONE (09:48)
[2017-08-26] MEDS ORDERED: CEFAZOLIN 1 GM INJ ONE (09:48)
[2017-08-26] MEDS ORDERED: ENOX80DI12 SC (09:48)
[2017-08-26] MEDS ORDERED: LIDOCAINE 2%/EPI 30 ML INJ ONE (09:48)
--- NOTE | 2017-08-26 10:36 | HPN ---
Date/Time of Note Date/Time of Note DATE: 08/26/17 TIME: 10:36 Interval H&P Admission Note Pt. seen H&P reviewed: No system changes NICKIE YOUNG MD Aug 26, 2017 10:36
[2017-08-26 10:48] LABS: INR 1.25; PROTIME 15.9 Sec (11.9-14.9); PT RATIO 1.2
[2017-08-26 10:51] LABS: PARTIAL THROMBOPLASTIN TIME 35.5 Sec (25.0-35.0)
[2017-08-26] MEDS ORDERED: BUPIVACAINE 0.5%/EPI (SDV) 30 ML INJ ONE (11:43)
[2017-08-26] MEDS ORDERED: CA CHLORIDE 10% 10 ML SYRINGE ONE (11:44)
[2017-08-26] MEDS ORDERED: POLYMYXIN/BACITRACIN 1L IRRIG ONE (11:44)
[2017-08-26] MEDS ORDERED: THROMBIN 5000 UNIT VIAL ONE (11:44)
[2017-08-26] MEDS: TRANEXAMIC ACID 1,000 MG in SOD CHLORIDE 0.9% 100 ML IVPB ONE ×2 (11:49→13:34)
[2017-08-26] MEDS ORDERED: MINERAL OIL LIGHT 10 ML VIAL ONE (11:54)
[2017-08-26] MEDS ORDERED: LACTATED RINGER'S 1,000 ML IV* SCH (12:00)
[2017-08-26] MEDS ORDERED: VANCOMYCIN 1 GM INJ ONE (12:22)
--- NOTE | 2017-08-26 13:21 | OPR ---
Date/Time of Note Date/Time of Note DATE: 08/26/17 TIME: 13:17 Operative Report Procedure Date: Aug 26, 2017 Preoperative Diagnosis Infected left reverse total shoulder Postoperative Diagnosis Infected reverse left total shoulder Operation/Procedure Performed 1. Removal of infected left reverse total shoulder and conversion to hemiarthroplasty 2. Implantation of absorbable cement beads Surgeon see signature line [employer] Bi Architect Jerry Cash MD Anesthesia Type: general Estimated Blood Loss: 50 - 100 ml's Transfusion none Specimen None Grafts/Implants none Complications none Pt Condition Post Procedure: stable Disposition: PACU Procedure Description INVESTMENT SALES ASSISTANT SURGEON: Jerry Cash MD was asked to be present for this case at my request. Assistance was necessary as a result of the highly technical nature of this operation. When performing an open total shoulder replacement, it is critical to have a trained assistant community director who is an expert in handling the extremity and assisting the surgeon in tasks such as suture management and knot- tying techniques as well as implants. This assistance cannot be performed by a commercial tire service technician, as it is considered an integral part of the procedure and the assistant community director should be compensated for their time. PROCEDURE IN DETAIL: Following the administration of general anesthesia supplemented with a peripheral nerve block for postoperative pain control, the patient was examined under anesthesia. The patient was then placed in the beach chair position. Sterile prep and drape was then undertaken. An extended deltopectoral incision was then carried through the interval exposing the prior incisions. The humeral component was then dislocated and seen to have some purulent material in the base. The humeral reverse total shoulder component was then removed in its entirety of the canal was reamed and several purulent areas were removed. Attention was then directed to the glenoid with the glenoid component was completely removed as well there was purulent material between the 2 parts of the left of the glenoid component. The area was thoroughly debrided of any devitalized tissue and thoroughly irrigated. A small humeral component was then covered with antibiotic impregnated cement as well as a antibiotic impregnated cement ball. In addition, several beads were then prepared for implantation and later absorption over the next 6 weeks. The actual component was then cemented in that the appropriate degree of version and inclination and a good stable component was then obtained. The joint was then thoroughly irrigated, the deep tissues were approximated using #2 suture in an interrupted fashion and a Prenio dressing. An Ultrasling was then applied. The patient was awakened and transported to the recovery room in stable condition. Estimated blood loss for this procedure was []. Radiographs will be obtained in the recovery room. NICKIE YOUNG MD Aug 26, 2017 13:21
[2017-08-26] MEDS ORDERED: ONDANSETRON 4 MG INJ IV PRN (13:30)
[2017-08-26] MEDS ORDERED: OXYCODONE/ACETAMINOPHEN (5/325) TAB PO PRN (13:30)
[2017-08-26] MEDS ORDERED: morphine 2 MG INJ IV PRN (13:30)
[2017-08-26] MEDS ORDERED: DIPHENHYDRAMINE 50 MG INJ IV PRN (13:30)
[2017-08-26] MEDS ORDERED: ZOLPIDEM 5 MG TAB PO PRN (13:30)
[2017-08-26] MEDS ORDERED: ACETAMINOPHEN 500 MG TAB PO PRN (13:30)
[2017-08-26] MEDS ORDERED: MAGNESIUM HYDROXIDE 30ML CUP PO PRN (13:30)
[2017-08-26] MEDS ORDERED: TRANEXAMIC ACID 1,000 MG in SOD CHLORIDE 0.9% 100 ML IV ONE (13:30)
[2017-08-26] MEDS ORDERED: morphine 4 MG/ML VIAL IV PRN (13:30)
[2017-08-26] MEDS ORDERED: KETOROLAC 15 MG INJ IV PRN (13:30)
--- NOTE | 2017-08-26 15:19 | RADRPT ---
PROCEDURE: XR left shoulder. CLINICAL INDICATION: Pain TECHNIQUE: A single AP view of the left shoulder was obtained. COMPARISON: Plain radiographs of the left shoulder from 03/25/2017 FINDINGS: There has been interval revision of the reversed total shoulder arthroplasty seen previously. There is no evidence of hardware loosening. Prominent left AC joint separation is again noted. There is normal osseous mineralization. RPTAT: AA IMPRESSION: Interval revision of the total left shoulder arthroplasty seen previously without evidence of hardwa re loosening. Redemonstration of prominent left AC joint separation. Physician Bull Date Time Electronically viewed and signed by Physician Bull on 08/26/2017 15:18 RA/
[2017-08-26] MEDS: DEXAMETHASONE 2 MG TAB PO SCH (18:10)
[2017-08-26] MEDS: VANCOMYCIN 500MG/NS (PMX) 100 ML IVPB SCH (20:01)
[2017-08-26] MEDS: SENNA/DOCUSATE NA (8.6MG/50MG) TAB PO SCH (20:14)
[2017-08-26] MEDS: OXYCODONE/ACETAMINOPHEN (5/325) TAB PO PRN (20:23)
[2017-08-26] MEDS ORDERED: DONEPEZIL 5 MG TAB PO SCH (21:00)
[2017-08-27] MEDS: DEXAMETHASONE 2 MG TAB PO SCH ×3 (00:09→11:57)
[2017-08-27 00:17] VITALS: BP 105/62; RESP 18
[2017-08-27 00:38] VITALS: BP 96/51; PULSE 69; RESP 16
[2017-08-27] MEDS: OXYCODONE/ACETAMINOPHEN (5/325) TAB PO PRN ×3 (01:31→11:55)
--- NOTE | 2017-08-27 06:50 | PDOCDIS ---
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
--- NOTE | 2017-08-27 06:52 | DS ---
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 Postop day #1 he is to be discharged followed up in the office in 2 weeks. Home Meds Reported Medications Enoxaparin Sodium* (Lovenox*) 80 Mg/0.8 Ml Disp.syrin, 80 MG SC Q24H, SYR 08/26/17 Donepezil* (Aricept*) 5 Mg Tablet, 5 MG PO QHS, TAB 08/26/17 Warfarin Sodium* (Warfarin Sodium*) 6 Mg Tablet, 6 MG PO DAILY, TAB 12/10/16 Olmesartan Medoxomil (Benicar) 20 Mg Tablet, 20 MG PO DAILY 01/04/14 Discontinued Reported Medications Tizanidine Hcl* (Zanaflex*) 2 Mg Tablet, 2 MG PO Q6H Y for SPASTICITY, TAB 12/10/16 Beclomethasone Dip* (Qvar 80*) 7.3 Gm Inha, 2 PUFF INH BID, #1 INHALER 12/10/16 Levothyroxine Sodium* (Levothyroxine Sodium*) 88 Mcg Tablet, 88 MCG PO BEFORE BREAKFAST, #30 TAB 12/10/16 Fluticasone Propionate (Flonase Allergy Relief) 9.9 Ml [place].susp, 2 SPRAY NASAL DAILY, #1 BOTTLE TO EACH NOSTRIL 12/10/16 Dexlansoprazole (Dexilant) 60 Mg Cap., 60 MG PO DAILY, #30 CAP 12/10/16 Metoprolol Succinate* (Toprol XL*) 25 Mg Tab.sr.24h, 25 MG PO DAILY, TAB 08/01/15 Follow-up Plan 2 weeks Primary Care Provider Not On Staff Doctor Pending Labs Laboratory Tests Test 08/26/17 10:00 Prothrombin Time 15.9Sec (11.9-14.9) Prothrombin Time Ratio 1.2 INR International Normalized Ratio 1.25 Activated Partial Thromboplast Time 35.5Sec (25.0-35.0) NICKIE YOUNG MD Aug 27, 2017 06:52
--- NOTE | 2017-08-27 06:52 | PN ---
Date/Time of Note Date/Time of Note DATE: 08/27/17 TIME: 06:50 24 hour Interval Summary Patient is awake and alert with minimal pain. Physical Exam Physical examination: He is neurologically intact. His wound has some mild drainage. A new dressing was applied. He has no signs of DVT. Vital Signs Date Time Temp Pulse Resp B/P Pulse Ox O2 Delivery O2 Flow Rate FiO2 08/27/17 00:38 98.0 69 16 96/51 95 Room Air 08/26/17 18:15 2.0 Intake and Output 08/26/17 08/26/17 08/27/17 14:59 22:59 06:59 Intake Total 1210 ml Output Total 450 ml Balance 760 ml VTE Prophylaxis VTE Prophylaxis Intervention: SCD's Lines/Catheters IV Catheter Type: PICC Line Central line still needed: Yes [place] in Place: No Results Results 24hrs Laboratory Tests Test 08/26/17 10:00 Prothrombin Time 15.9 H Prothrombin Time Ratio 1.2 INR International Normalized Ratio 1.25 Activated Partial Thromboplast Time 35.5 H Assessment/Plan Assessment/Plan Assessment: Status post I&D with antibiotic spacer implanted Plan: He will begin his self-directed therapy. 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 He will follow-up in the office in 2 weeks. Medications Medications Home Meds Reported Medications Enoxaparin Sodium* (Lovenox*) 80 Mg/0.8 Ml Disp.syrin, 80 MG SC Q24H, SYR 08/26/17 Donepezil* (Aricept*) 5 Mg Tablet, 5 MG PO QHS, TAB 08/26/17 Warfarin Sodium* (Warfarin Sodium*) 6 Mg Tablet, 6 MG PO DAILY, TAB 12/10/16 Olmesartan Medoxomil (Benicar) 20 Mg Tablet, 20 MG PO DAILY 01/04/14 Discontinued Reported Medications Tizanidine Hcl* (Zanaflex*) 2 Mg Tablet, 2 MG PO Q6H Y for SPASTICITY, TAB 12/10/16 Beclomethasone Dip* (Qvar 80*) 7.3 Gm Inha, 2 PUFF INH BID, #1 INHALER 12/10/16 Levothyroxine Sodium* (Levothyroxine Sodium*) 88 Mcg Tablet, 88 MCG PO BEFORE BREAKFAST, #30 TAB 12/10/16 Fluticasone Propionate (Flonase Allergy Relief) 9.9 Ml [place].susp, 2 SPRAY NASAL DAILY, #1 BOTTLE TO EACH NOSTRIL 12/10/16 Dexlansoprazole (Dexilant) 60 Mg Cap.mp, 60 MG PO DAILY, #30 CAP 12/10/16 Metoprolol Succinate* (Toprol XL*) 25 Mg Tab.sr.24h, 25 MG PO DAILY, TAB 08/01/15 NICKIE YOUNG MD Aug 27, 2017 06:52
[2017-08-27 08:11] VITALS: BP 127/60; PULSE 63; RESP 16
[2017-08-27] MEDS: SENNA/DOCUSATE NA (8.6MG/50MG) TAB PO SCH (08:32)
[2017-08-27] MEDS: VANCOMYCIN 500MG/NS (PMX) 100 ML IVPB SCH (08:39)
[2017-08-27] MEDS ORDERED: LOSARTAN 50 MG TAB PO SCH (09:00)
[2017-08-27] MEDS ORDERED: ENOXAPARIN 80 MG/0.8 ML SYG SC SCH (09:00)
[2017-08-27] MEDS ORDERED: ASPIRIN 81 MG TAB PO SCH (09:00)
[2017-08-27] MEDS ORDERED: WARFARIN 3 MG TAB PO SCH (17:00)
== END 2017-08-27 15:30 | disposition home or self-care (01) | DRG 483 ==
LOC: REC 09:14 → EDSTATUS 12:30 → MS1 14:58
PROVIDERS: ADMIT Orthopaedic Surgery; ATTEND Orthopaedic Surgery
PROC: 0RPK0JZ Removal of Synthetic Substitute from Left Shoulder Joint, Open Approach (ICD-10-PCS; 2017-08-26)
PROC: 0RRK0J6 Replacement of Left Shoulder Joint with Synthetic Substitute, Humeral Surface, Open Approach (ICD-10-PCS; principal; 2017-08-26 11:30)
DX: T84.59XA Infection and inflammatory reaction due to other internal joint prosthesis, initial encounter (principal)
CPT/HCPCS: 73030; 85610; 85730; 86999; 87070; 87075; 87116; C1713; J0171; J0690; J0735; J1100; J1885; J2250; J2274; J2710; J2765; J2795; J3010; J3370; J7120

== ENCOUNTER 2017-09-23 08:24 | Day surgery (SDC) | END 2017-09-23 17:18 | disposition home or self-care (01) ==

== ENCOUNTER 2019-05-25 09:23 | Day surgery (SDC) | payer BC, MEDICARE ==
[~2019-05-25] VITALS: Ht 170.2 cm; Wt 72.0 kg
[2019-05-25] VITALS (32 sets, daily range): BP systolic 105–169; BP diastolic 51–92; PULSE 60–86; RESP 14–28; Ht 170.2 cm; Wt 72.0 kg
[~2019-05-25 09:23] MED LIST changes: +ATOR10TA65 PO; -ATROPINE 1 MG/10 ML SYRINGE IV PRN; -BECL8.7A5 INH; -BUPIVACAINE 0.5% (SDV) 30 ML, morphine SULFATE (PF) 8 MG, EPINEPHrine 0.3 MG, KETOROLAC... IRR SCH; -DEXAMETHASONE 1 MG TAB PO ONE; -DEXAMETHASONE 4 MG/ML 1 ML INJ ONE; -DEXL60CA2 PO; -DIPHENHYDRAMINE 50 MG INJ IV PRN; +DONE5TAB46 PO; +ENOX80DI12 SC; -EPHEDrine SULFATE 50 MG/5 ML SYG IV PRN; -FENTAnyl 50 MCG/ML VIAL IV PRN; -FLUT9.9S NASAL; -GABAPENTIN 300 MG CAP PO ONE; -HYDROmorphONE (0.2 MG/ML) 10ML SYG IV PRN; +IBUP-1545 PO; +KETO10TA PO; -LABETALOL HCL 20MG INJ IV PRN; -LEVO88TA3 PO; +MEMA5TAB14 ORAL; -MEPERIDINE 25 MG INJ IV PRN; +METO-335 ORAL; -METO-335 PO; -MIDAZOLAM 1 MG/ML 2 ML INJ IV PRN; +MIRA25TA ORAL; -ONDANSETRON 4 MG INJ IV PRN; +OXYC-431 PO; -OXYCODONE/ACETAMINOPHEN (5/325) TAB PO PRN; -TIZA2TAB PO; +VANC1.756 IV; -VANCOMYCIN 1 GM (PMX) 250 ML IVPB ONE; +WARF5TAB PO; -WARF6TAB35 PO; +WARF6TAB48 PO; -hydrALAzine 20 MG INJ IV PRN; -morphine (1 MG/ML) 10ML SYRINGE IV PRN; -traMADol 50 MG TAB PO ONE
[2019-05-25] MEDS ORDERED: GABAPENTIN 300 MG CAP PO ONE (10:00)
[2019-05-25] MEDS ORDERED: DEXAMETHASONE 1 MG TAB PO ONE (10:00)
[2019-05-25] MEDS ORDERED: TRANEXAMIC ACID 1GM/100ML(PMX) 100 ML IVPB ONE ×3 (10:00→17:30)
[2019-05-25] MEDS ORDERED: CEFAZOLIN 2 GM/50 ML (PMX) 50 ML IVPB ONE (10:00)
[2019-05-25] MEDS ORDERED: NEOSTIGMINE 3 MG/3 ML SYRINGE ONE (10:26)
[2019-05-25] MEDS ORDERED: PROPOFOL 20 ML ONE (10:26)
[2019-05-25] MEDS ORDERED: GLYCOPYRROLATE 0.4 MG INJ ONE (10:26)
[2019-05-25] MEDS ORDERED: ROCURONIUM 50 MG INJ ONE (10:26)
[2019-05-25] MEDS ORDERED: CEFAZOLIN 1 GM INJ ONE (10:26)
[2019-05-25] MEDS ORDERED: MIDAZOLAM 1 MG/ML 2 ML INJ ONE (10:27)
[2019-05-25] MEDS ORDERED: FENTAnyl 50 MCG/ML VIAL ONE ×2 (10:27→12:38)
[2019-05-25] MEDS ORDERED: DEXAMETHASONE 4 MG/ML 5 ML INJ ONE (10:28)
[2019-05-25] MEDS ORDERED: ONDANSETRON 4 MG INJ ONE (10:28)
[2019-05-25] MEDS ORDERED: BUPIVACAINE 0.5% (SDV) 30 ML, morphine SULFATE (PF) 8 MG, EPINEPHrine 0.3 MG, KETOROLAC... IRR SCH ×7 (11:30)
[2019-05-25] MEDS ORDERED: POLYMYXIN B 500000 UNIT INJ ONE (11:43)
[2019-05-25] MEDS ORDERED: HYDROmorphONE 1 MG/5 ML IV SYRINGE IV PRN ×3 (12:00)
[2019-05-25] MEDS ORDERED: IPRATROPIUM (NEB) 0.5 MG/2.5 ML AMP HHN PRN (12:00)
[2019-05-25] MEDS ORDERED: DIPHENHYDRAMINE 50 MG INJ IV PRN ×2 (12:00→13:30)
[2019-05-25] MEDS ORDERED: OXYCODONE/ACETAMINOPHEN (5/325) TAB PO PRN ×2 (12:00)
[2019-05-25] MEDS ORDERED: MEPERIDINE 25 MG INJ IV PRN (12:00)
[2019-05-25] MEDS ORDERED: LABETALOL HCL 20MG INJ IV PRN (12:00)
[2019-05-25] MEDS ORDERED: EPHEDrine 25 MG/5 ML SYG IV PRN (12:00)
[2019-05-25] MEDS ORDERED: hydrALAzine 20 MG INJ IV PRN (12:00)
[2019-05-25] MEDS ORDERED: TRIMETHOBENZAMIDE 100 MG/ML VIAL IM PRN (12:00)
[2019-05-25] MEDS ORDERED: ALBUTEROL 0.083% (NEB) 2.5 MG/3 ML AMP HHN PRN (12:00)
[2019-05-25] MEDS ORDERED: ONDANSETRON 4 MG INJ IV PRN ×2 (12:00→13:30)
[2019-05-25] MEDS ORDERED: FENTAnyl 50 MCG/ML VIAL IV PRN ×2 (12:00)
[2019-05-25] MEDS ORDERED: MIDAZOLAM 1 MG/ML 2 ML INJ IV PRN (12:00)
[2019-05-25] MEDS ORDERED: BACITRACIN 50000 UNITS INJ IRR ONE (12:32)
[2019-05-25] MEDS ORDERED: VANCOMYCIN 1 GM INJ ONE (12:38)
[2019-05-25] MEDS ORDERED: MAGNESIUM HYDROXIDE 30ML CUP PO PRN (13:30)
[2019-05-25] MEDS ORDERED: HYDROmorphONE 1 MG/ML SYG IV PRN (13:30)
[2019-05-25] MEDS ORDERED: VANCOMYCIN IV SCH ×2 (13:30→14:00)
[2019-05-25] MEDS ORDERED: ENOXAPARIN 80 MG/0.8 ML SYG SC SCH ×2 (13:30→14:00)
[2019-05-25] MEDS ORDERED: ZOLPIDEM 5 MG TAB PO PRN (13:30)
[2019-05-25] MEDS ORDERED: SOD CHLORIDE IV SCH ×2 (13:30→14:00)
[2019-05-25] MEDS ORDERED: oxyCODONE 5 MG TAB PO PRN ×3 (13:30)
[2019-05-25] MEDS ORDERED: [UNRECOGNIZED DRUG - OTHER] IV SCH ×2 (13:30→14:00)
[2019-05-25] MEDS ORDERED: LOPERAMIDE 2 MG CAP PO PRN (13:30)
[2019-05-25] MEDS ORDERED: NACL 0.9% 3 ML SYG IV SCH (13:30)
[2019-05-25] MEDS: FENTAnyl 50 MCG/ML VIAL IV PRN ×2 (15:21→15:48)
[2019-05-25] MEDS: ACETAMINOPHEN 500 MG TAB PO SCH (19:00)
[2019-05-25] MEDS: SENNA/DOCUSATE NA (8.6MG/50MG) TAB PO SCH (20:57)
[2019-05-25] MEDS ORDERED: MIRABEGRON ORAL SCH ×2 (21:00)
[2019-05-25] MEDS ORDERED: ATORVASTATIN 10 MG TAB PO SCH (21:00)
[2019-05-25] MEDS ORDERED: DONEPEZIL 5 MG TAB PO SCH (21:00)
[2019-05-26 00:57] VITALS: BP 102/56; PULSE 70; RESP 20
[2019-05-26 05:00] VITALS: BP 110/52; PULSE 64; RESP 18
[2019-05-26] MEDS: ACETAMINOPHEN 500 MG TAB PO SCH ×3 (06:08→12:47)
[2019-05-26 07:28] VITALS: BP 101/49; PULSE 59; RESP 18
[2019-05-26] MEDS ORDERED: MYRBETRIQ IS NON FORMULARY...PLEASE CONSIDER AN ORDER TO USE PATIENT'S OWN MED XX SCH (07:30)
[2019-05-26] MEDS: SENNA/DOCUSATE NA (8.6MG/50MG) TAB PO SCH (08:26)
[2019-05-26] MEDS ORDERED: NON-FORMULARY/PATIENT OWN MED (Olmesartan Medoxomil (Benicar) 20 MG) PO SCH (09:00)
[2019-05-26] MEDS ORDERED: LOSARTAN 25 MG TAB PO SCH (09:00)
[2019-05-26] MEDS ORDERED: WARFARIN 5 MG TAB PO SCH (17:00)
== END 2019-05-26 13:34 | disposition home or self-care (01) ==
LOC: SDS 09:23 → REC 09:23 → UNDOADMIN 09:23 → EDSTATUS 11:30 → MS1 13:37 → UNDOADMIN 19:22 → MS1 19:22 → SDS 05-26 13:34
PROVIDERS: ATTEND Orthopaedic Surgery
DX: T84.59XA Infection and inflammatory reaction due to other internal joint prosthesis, initial encounter (principal); Y79.3 Surgical instruments, materials and orthopedic devices (including sutures) associated with adverse incidents; Y83.8 Other surgical procedures as the cause of abnormal reaction of the patient, or of later complication, without mention of misadventure at the time of the procedure; I10 Essential (primary) hypertension; Z79.01 Long term (current) use of anticoagulants
CPT/HCPCS: 23473; 73030; 80048; 83735; 85014; 85018; 85025; 85335; 85610; 87070; 87075; 87102; 88300; 97162; J0171; J0690; J0735; J1100; J1650; J1885; J2175; J2250; J2274; J2405; J2710; J3010; J3370